=== PATIENT | male | born 1970 | race Two or more races ===

== ENCOUNTER 2022-01-12 08:45 | Emergency (ER) | payer MEDICAID ==
[~2022-01-12] VITALS: Ht 167.6 cm; Wt 100.0 kg
[~2022-01-12 08:45] MED LIST: AMOX500T86 PO; ASPI-543 PO; ATO40T PO; IBUP800T27 PO; INSU1INJ19 SC; LISI20TA28 PO; METF-370 PO
[2022-01-12 09:39] VITALS: BP 134/93
[2022-01-12] MEDS ORDERED: KETOROLAC TROMETH 60MG/2ML VIAL IM ONE (09:45)
[2022-01-12] MEDS ORDERED: IBUP800T27 PO ×2 (10:20→10:30)
[2022-01-12] MEDS ORDERED: BACL10TA PO ×2 (10:20→10:30)
== END 2022-01-12 10:37 | disposition home or self-care (01) ==
LOC: ER 08:45
DX: S16.1XXA Strain of muscle, fascia and tendon at neck level, initial encounter (principal); S29.012A Strain of muscle and tendon of back wall of thorax, initial encounter; I10 Essential (primary) hypertension; E78.5 Hyperlipidemia, unspecified; Z79.82 Long term (current) use of aspirin; Z79.1 Long term (current) use of non-steroidal anti-inflammatories (NSAID); Z79.4 Long term (current) use of insulin; Z79.899 Other long term (current) drug therapy; X50.1XXA Overexertion from prolonged static or awkward postures, initial encounter; Y93.89 Activity, other specified; Y92.89 Other specified places as the place of occurrence of the external cause; Y99.0 Civilian activity done for income or pay
CPT/HCPCS: 72040; 96372; 99283; J1885

== ENCOUNTER 2023-03-21 06:34 | Inpatient (IN) | payer MEDICAID ==
[~2023-03-21] VITALS: Ht 167.6 cm; Wt 97.6 kg
[~2023-03-21 06:34] MED LIST changes: +BACL10TA PO; +IBUP-1456 PO; -IBUP800T27 PO; -LISI20TA28 PO; +LISI20TA56 PO
[2023-03-21] MEDS: cefTRIAXone 1GM/50ML D5W 50 ML IV ONE (07:36)
[2023-03-21] MEDS: AZITHROMYCIN 500MG/ 250ML 250 ML IV ONE (07:36)
[2023-03-21] MEDS: methylPREDNISolone SOD SUCC 125 MG/2 ML VL IV ONE (07:36)
[2023-03-21 07:43] LABS: Basophils % (auto) 0.4 % (0.0-2.0); Eosinophils # (auto) 0 10 ^3/uL (0-0.8); Eosinophils % (auto) 0.3 % (0.0-7.0); Hemoglobin 13.5 g/dL (13.5-17.5); Monocytes # (auto) 1.1 10 ^3/uL (0-1.3); Nucleated Red Blood Cells % 0.1 %
[2023-03-21 07:46] LABS: Basophils # (auto) 0 10 ^3/uL (0-0.2); Hematocrit 41.7 % (41.0-53.0); Lymphocytes % (auto) 8.5 % (10.0-50.0); Mean Corpuscular Hemoglobin 26.8 pg (28.0-32.0); Mean Corpuscular Hgb Conc. 32.3 g/dL (32.0-36.0); Monocytes % (auto) 9.5 % (0.0-12.0); Neutrophils # (auto) 9.8 10 ^3/uL (1.6-8.6); Neutrophils % (auto) 81.3 % (37.0-80.0); Red Blood Cells 5.03 10^6/uL (4.5-5.90); Red Cell Distribution Width 13.3 % (11.8-14.3)
[2023-03-21 07:53] LABS: Alanine Aminotransferase 20 U/L (7-40); Alkaline Phosphatase 89 U/L (46-116); Anion Gap 6 (5-15); Aspartate Aminotransferase 13 U/L (13-40); BUN/Creatinine Ratio 13.9 (10.0-20.0); Blood Urea Nitrogen 11 mg/dL (9-23); Calcium 8.7 mg/dL (8.5-10.1); Carbon Dioxide 25 mmol/L (20-30); Chloride 106 mmol/L (98-107); Glucose 251 mg/dL (74-106); Potassium 3.6 mmol/L (3.5-5.1); Sodium 137 mmol/L (136-145)
[2023-03-21 07:54] LABS: Albumin 3.9 g/dL (3.2-4.8); Bilirubin, Total 0.4 mg/dL (0.2-1.0); Total Protein 6.5 g/dL (5.7-8.2)
[2023-03-21] MEDS: ACETAMINOPHEN 325 MG TAB PO PRN (08:16)
[2023-03-21] MEDS: HYDROcodone-ACET 5/325MG TAB PO ONE (08:16)
[2023-03-21 08:43] LABS: COVID19 ANTIGEN SOFIA FIA NEGATIVE (NEGATIVE)
[2023-03-21 08:48] LABS: Rapid Influenza A Positive (Negative)
[2023-03-21 08:49] LABS: Rapid Influenza B Negative (Negative)
[2023-03-21] MEDS ORDERED: PROMETHAZINE W/CODEINE 5 ML ORAL SYRUP PO PRN (09:45)
[2023-03-21] MEDS ORDERED: DOCUSATE SOD 100 MG CAP PO PRN (09:45)
[2023-03-21] MEDS ORDERED: NITROGLYCERIN 0.4 MG SL TAB SL PRN (09:45)
[2023-03-21] MEDS ORDERED: DEXTROSE (50%) 50ML SYRG IV PRN (09:45)
[2023-03-21] MEDS: SODIUM CHLORIDE 0.9% 1,000 ML IV SCH (09:45)
[2023-03-21] MEDS ORDERED: TEMAZEPAM 15 MG CAP PO PRN (09:45)
[2023-03-21] MEDS ORDERED: MORPHINE SULFATE INJ 2 MG/ml SYRG IV PRN ×2 (09:45)
[2023-03-21] MEDS ORDERED: ONDANSETRON HCL 4 MG/2 ML VIAL IV PRN (09:45)
[2023-03-21] MEDS ORDERED: ALBUTEROL SULF HFA 90MCG INH 200DOSE IN PRN (09:45)
[2023-03-21] MEDS: LISINOPRIL 20 MG TAB PO SCH (10:00)
[2023-03-21] MEDS: PANTOPRAZOLE 40 MG/10 ML VIAL INJ IV SCH (10:00)
[2023-03-21] MEDS: ASPirin-EC 81 mg tab PO SCH (10:00)
[2023-03-21 10:05] VITALS: BP 128/81; PULSE 90; RESP 18; TEMP 101.7; O2SAT 97
[2023-03-21 10:10] VITALS: O2SAT 97
[2023-03-21] MEDS ORDERED: ALBUTEROL SULF 2.5 MG/0.5ML(0.5%) NEB SOLN NEB PRN (10:15)
[2023-03-21] MEDS ORDERED: PROMETHAZINE HCL 25 MG/ML 1ML IV ONE (10:15)
[2023-03-21] MEDS: OSELTAMIVIR 75 MG CAP PO SCH (11:28)
[2023-03-21] MEDS: ENOXAPARIN SOD 40 MG/0.4 ML SYRINGE SC SCH (11:28)
[2023-03-21] MEDS: ACCU-CHEK COMFORT CURVE STRIP VI SCH (11:35)
[2023-03-21] MEDS: InsuLIN REG 1unit/0.01ml Soln (100units/ml) SC SCH ×2 (11:39→22:03)
[2023-03-21 12:45] VITALS: PULSE 83; RESP 18; O2SAT 96
[2023-03-21] MEDS: HYDROcodone-ACET 5/325MG TAB PO PRN (17:43)
[2023-03-21] MEDS: ATORVASTATIN 20 MG TAB PO SCH (18:13)
[2023-03-21 19:00] VITALS: O2SAT 95
[2023-03-21 19:30] VITALS: PULSE 91; RESP 13; O2SAT 96
[2023-03-21] MEDS: INSULIN LANTUS (GLARGINE) 1 /0.01ml (100units/ml) SC SCH (22:04)
[2023-03-21] MEDS: InsuLIN REG 1unit/0.01ml Soln (100units/ml) SC ONE (22:40)
[2023-03-22] VITALS (9 sets, daily range): BP systolic 104–126; BP diastolic 70–88; PULSE 70–88; RESP 16–22; TEMP 97.9–98.6; O2SAT 95–99
[2023-03-22] MEDS: InsuLIN REG 1unit/0.01ml Soln (100units/ml) SC SCH ×2 (06:04→21:27)
[2023-03-22] MEDS: ACETAMINOPHEN 325 MG TAB PO PRN (09:09)
[2023-03-22] MEDS: PROMETHAZINE W/CODEINE 5 ML ORAL SYRUP PO PRN (09:23)
[2023-03-22 09:43] LABS: Eosinophils # (auto) 0 10 ^3/uL (0-0.8); Hemoglobin 12.3 g/dL (13.5-17.5); Monocytes # (auto) 0.9 10 ^3/uL (0-1.3); Nucleated Red Blood Cells % 0.1 %
[2023-03-22 09:45] LABS: Basophils # (auto) 0 10 ^3/uL (0-0.2); Hematocrit 38.4 % (41.0-53.0); Lymphocytes # (auto) 1.5 10 ^3/uL (0.4-5.4); Lymphocytes % (auto) 10.4 % (10.0-50.0); Mean Corpuscular Hemoglobin 27.1 pg (28.0-32.0); Mean Corpuscular Hgb Conc. 31.9 g/dL (32.0-36.0); Mean Corpuscular Volume 84.7 fL (80.0-100.0); Monocytes % (auto) 6.6 % (0.0-12.0); Neutrophils # (auto) 11.6 10 ^3/uL (1.6-8.6); Red Blood Cells 4.53 10^6/uL (4.5-5.90); Red Cell Distribution Width 13.5 % (11.8-14.3)
[2023-03-22 10:02] LABS: Alanine Aminotransferase 15 U/L (7-40); Alkaline Phosphatase 76 U/L (46-116); Anion Gap 6 (5-15); BUN/Creatinine Ratio 16.3 (10.0-20.0); Blood Urea Nitrogen 13 mg/dL (9-23); Calcium 8.8 mg/dL (8.5-10.1); Carbon Dioxide 25 mmol/L (20-30); Chloride 106 mmol/L (98-107); Glucose 308 mg/dL (74-106); Potassium 4.4 mmol/L (3.5-5.1); Sodium 137 mmol/L (136-145)
[2023-03-22 10:03] LABS: Albumin 3.5 g/dL (3.2-4.8); Aspartate Aminotransferase 17 U/L (13-40)
[2023-03-22 10:04] LABS: Bilirubin, Total 0.3 mg/dL (0.2-1.0)
[2023-03-22] MEDS: INSULIN LANTUS (GLARGINE) 1 /0.01ml (100units/ml) SC SCH (21:26)
[2023-03-23] VITALS (7 sets, daily range): BP systolic 123–137; BP diastolic 76–90; PULSE 65–84; RESP 16–18; TEMP 97.6–98.1; O2SAT 97–98
[2023-03-23] MEDS ORDERED: TAMIFLU PO (09:19)
== END 2023-03-23 12:13 | disposition home or self-care (01) | DRG 113 ==
LOC: ER 06:34 → TELE 09:35 → TELE-CENTR 09:38
PROVIDERS: ADMIT Nurse Practitioner; ATTEND Nurse Practitioner
DX: J10.01 Influenza due to other identified influenza virus with the same other identified influenza virus pneumonia (principal); J96.01 Acute respiratory failure with hypoxia; R65.10 Systemic inflammatory response syndrome (SIRS) of non-infectious origin without acute organ dysfunction; E11.65 Type 2 diabetes mellitus with hyperglycemia; I10 Essential (primary) hypertension; E66.9 Obesity, unspecified; Z68.34 Body mass index [BMI] 34.0-34.9, adult; Z20.822 Contact with and (suspected) exposure to COVID-19; J10.1 Influenza due to other identified influenza virus with other respiratory manifestations; E78.00 Pure hypercholesterolemia, unspecified; J98.11 Atelectasis; Z79.84 Long term (current) use of oral hypoglycemic drugs; Z82.49 Family history of ischemic heart disease and other diseases of the circulatory system; Z83.3 Family history of diabetes mellitus
CPT/HCPCS: 36415; 71045; 80053; 82962; 83605; 85025; 87040; 87426; 87804; 93005; 96365; 96368; 96372; C9113; G0378; J1815

== ENCOUNTER 2024-02-25 17:08 | Emergency (ER) | payer MEDICAID ==
[~2024-02-25] VITALS: Ht 157.5 cm; Wt 97.0 kg
[~2024-02-25 17:08] MED LIST changes: -AMOX500T86 PO; -ATO40T PO; +ATOR-507 PO; +TAMIFLU PO
[2024-02-25 18:53] LABS: Alanine Aminotransferase 21 U/L (7-40); Albumin 4.4 g/dL (3.2-4.8); Anion Gap 7 (5-15); Aspartate Aminotransferase 14 U/L (13-40); BUN/Creatinine Ratio 11.8 (10.0-20.0); Bilirubin, Total 0.3 mg/dL (0.2-1.0); Blood Urea Nitrogen 13 mg/dL (9-23); Carbon Dioxide 28 mmol/L (20-31); Chloride 101 mmol/L (98-107); Lipase 48 U/L (12-53); Potassium 4.6 mmol/L (3.5-5.1); Sodium 136 mmol/L (136-145); Total Protein 7.6 g/dL (5.7-8.2)
--- NOTE | 2024-02-25 18:59 | ED.PDOC ---
GI ASSESSMENT HPI Comments 53y M who presents to the ED for chief complaint of abdominal pain. Pt states he has been having RUQ abdominal pain for the past 1 month getting progressively worse. Pt states the pain is constant, radiating to the back, describing the pain as sharp and achy, non-radiating, with noted exacerbation of pain after eating and no relieving factors. Pt otherwise denies nausea, vomiting, diarrhea, fever, cough, chills, or dysuria. Pt states he has no prior history of gallstones and denies any past surgeries. Pt otherwise has noted accu check of 442 with noted history of DM, HTN and HLD. Pt otherwise stable vitals with 98.9 F and BP of 116/83 with all other vitals in normal range. Pt otherwise denies any other symptoms at this time. Chief Complaint: Abdominal Pain Time Seen by MD: 18:53 Primary Care Provider: UNKNOWN Reviewed Notes: Medications Allergies: Coded Allergies: NO KNOWN ALLERGIES (Unverified , 11/21/21) Home Meds Active Scripts Pantoprazole Sodium Sesquihydr (Pantoprazole Sodium) 40 Mg Tab, 40 MG PO DAILY, #30 TAB Prov:PRINCESS LLAMAS MD 02/25/24 Ibuprofen Micronized (Ibuprofen) 800 Mg Tab, 800 MG PO Q8HP PRN, #30 TAB prn pain Prov:PRINCESS LLAMAS MD 02/25/24 Oseltamivir Phosphate (Tamiflu) 75 Mg Cap, 75 MG PO BID for 3 Days, #6 CAP Prov:ERICKYOUNG GLASS Kevin BEAUTY ARTIST 03/23/23 Baclofen (Baclofen) 10 Mg Tab, 10 MG PO BID, #20 TAB Prov:LILA SANTOS 01/12/22 Ibuprofen (Ibuprofen) 800 Mg Tab, 800 MG PO TID for RIGHT GROIN MASS, #30 MG Prov:LILA SANTOS 01/12/22 Reported Medications Insulin Glargine (Basaglar Kwikpen) 100 Unit/Ml Inj, 50 UNIT SC DAILY for DIABETES, INJ 11/21/21 Atorvastatin Calcium (Lipitor) 40 Mg Tab, 1 TAB PO QPM for HIGH CHOLESTEROL, #90 TAB 3 Refills 11/21/21 Lisinopril (Lisinopril) 20 Mg Tab, 20 MG PO DAILY for 30 Days, MG 11/21/21 Aspirin (Aspir-Low) 81 Mg Tab, 81 MG PO DAILY for 30 Days, MG 11/21/21 Metformin Hydrochloride (Metformin Hcl) 500 Mg Tab, 1000 MG PO IBID for 30 Days, MG 11/21/21 Information Source: Patient Mode of Arrival: Ambulatory Brought in by: spouse Past Medical History PAST MEDICAL HISTORY: DM, High Lipids, HTN Surgical History: Denies all surgeries Family History Family History: Reviewed,noncontributory to illness Social History Smoker: Non-Smoker Alcohol: Occasionally Drugs: Denies Drug Use Lives In: Home Constitutional: denies: chills, diaphoresis, fatigue, fever, malaise, sweats, weakness, others EENTM: denies: blurred vision, double vision, ear bleeding, ear discharge, ear drainage, ear pain, ear ringing, eye pain, eye redness, hearing loss, mouth pain, mouth swelling, nasal discharge, nose bleeding, nose congestion, nose pain, photophobia, tearing, throat pain, throat swelling, voice changes, others Respiratory: denies: cough, hemoptysis, orthopnea, SOB at rest, shortness of breath, SOB with excertion, stridor, wheezing, others Cardiovascular: denies: chest pain, dizzy spells, diaphoresis, Dyspnea on exertion, edema, irregular heart beat, left arm pain, lightheadedness, palpitations, PND, syncope, others Gastrointestinal: reports: abdominal pain; denies: abdomen distended, blood streaked bowels, constipated, diarrhea, dysphagia, difficulty swallowing, hematemesis, melena, nausea, poor appetite, poor fluid intake, rectal bleeding, rectal pain, vomiting, others Genitourinary: denies: burning, dysuria, flank pain, frequency, hematuria, incontinence, penile discharge, penile sore, pain, testicle pain, testicle swelling, urgency, others Neurological: denies: dizziness, fainting, headache, left sided numbness, left sided weakness, numbness, paresthesia, pre-existing deficit, right sided numbness, right sided weakness, seizure, speech problems, tingling, tremors, weakness, others Musculoskeletal: denies: back pain, gout, joint pain, joint swelling, muscle pain, muscle stiffness, neck pain, others Integumetry: denies: bruises, change in color, change in hair/nails, dryness, laceration, lesions, lumps, rash, wounds, others Allergic/Immunocompromised: denies: Difficulty Healing, Frequent Infections, Hives, Itching, others Hematologic/Lymphatic: denies: anemia, blood clots, easy bleeding, easy bruising, swollen glands, others Endocrine: denies: excessive hunger, excessive sweating, excessive thirst, excessive urination, flushing, intolerance to cold, intolerance to heat, un explained weight gain, unexplained weight loss, others Psychiatric: denies: anxiety, bipolar disorder, depression, hopeless, panic disorder, schizophrenia, sleepless, suicidal, others All Other Systems: Reviewed and Negative Physical Exam General Appearance: No Apparent Distress HEENT: Other (Unremarkable) Neck: Full Range of Motion, Normal Inspection Respiratory: Lungs Clear, No Accessory Muscle Use, No Respiratory Distress, Normal Breath Sounds Cardiovascular: No Edema, No JVD, Regular Rate/Rhythm Breast Exam: Deferred Gastrointestinal: RUQ, Soft, Tenderness Genitalia: Deferred Pelvic: Deferred Rectal: Deferred Extremities: Normal inspection, Normal range of motion, Non-tender, No pedal edema Neurologic: Alert (Oriented x4), Normal Affect, Normal Mood, Other (Ambulatory without difficulty. No gross focal deficit.) Cerebellar Function: NOT DONE Reflexes: NOT DONE Skin: Dry, Normal Color, Warm Lymphatic: NOT DONE Was a procedure done? Was a procedure done?: No GI differential Dx Differential Diagnosis: Cholangitis, Cholecystitis, Constipation, Gastritis/PUD, Gastroenteritis, Pancreatitis, Dehydration, Food Poisoning, Bacterial, Viral, Kidney Stone Other Differential Diagnosis gallstones, biliary colic, cholangitis X-Ray, Labs, Meds, VS Vital Signs Date Time Temp Pulse Resp B/P (MAP) Pulse Ox O2 Delivery O2 Flow Rate FiO2 02/25/24 22:39 98.0 88 19 116/74 (88) 95 98.0 02/25/24 21:12 87 19 95 Room Air* 0 21 02/25/24 18:11 98.0 97 18 123/77 (92) 97 98.0 02/25/24 17:30 98.9 95 17 116/83 (94) 95 Lab Test 02/25/24 22:19 02/25/24 18:08 02/25/24 17:40 Range/Units POC Glucose 276 H 70-106 mg/dl White Blood Count 6.1 4.4-10.8 10^3/uL Red Blood Count 5.89 4.5-5.90 10^6/uL Hemoglobin 15.9 13.5-17.5 g/dL Hematocrit 48.8 41.0-53.0 % Mean Corpuscular Volume 82.9 80.0-100.0 fL Mean Corpuscular Hemoglobin 27.0 L 28.0-32.0 pg Mean Corpuscular Hemoglobin Concent 32.6 32.0-36.0 g/dL Red Cell Distribution Width 13.6 11.8-14.3 % Platelet Count 177 140-450 10^3/uL Mean Platelet Volume 9.6 6.9-10.8 fL Neutrophils (%) (Auto) 52.6 37.0-80.0 % Lymphocytes (%) (Auto) 34.8 10.0-50.0 % Monocytes (%) (Auto) 9.6 0.0-12.0 % Eosinophils (%) (Auto) 2.4 0.0-7.0 % Basophils (%) (Auto) 0.6 0.0-2.0 % Neutrophils # (Auto) 3.2 1.6-8.6 10 ^3/uL Lymphocytes # (Auto) 2.1 0.4-5.4 10 ^3/uL Monocytes # (Auto) 0.6 0-1.3 10 ^3/uL Eosinophils # (Auto) 0.1 0-0.8 10 ^3/uL Basophils # (Auto) 0 0-0.2 10 ^3/uL Nucleated Red Blood Cells 0.3 % Sodium Level 136 136-145 mmol/L Potassium Level 4.6 3.5-5.1 mmol/L Chloride Level 101 98-107 mmol/L Carbon Dioxide Level 28 20-31 mmol/L Anion Gap 7 5-15 Blood Urea Nitrogen 13 9-23 mg/dL Creatinine 1.10 0.700-1.30 mg/dL Glomerular Filtration Rate Calc 80 >90 mL/min BUN/Creatinine Ratio 11.8 10.0-20.0 Serum Glucose 409 *H 74-106 mg/dL Calcium Level 10.0 8.7-10.4 mg/dL Total Bilirubin 0.3 0.2-1.0 mg/dL Aspartate Amino Transferase (AST) 14 13-40 U/L Alanine Aminotransferase (ALT) 21 7-40 U/L Alkaline Phosphatase 120 H 46-116 U/L Total Protein 7.6 5.7-8.2 g/dL Albumin 4.4 3.2-4.8 g/dL Lipase 48 12-53 U/L Urine Color Colorless Yellow Urine Clarity Clear Clear Urine pH 6.5 5.0-9.0 Urine Specific [place] 1.032 1.001-1.035 Urine Protein Negative Negative Urine Ketones Negative Negative Urine Blood Negative Negative /uL Urine Nitrite Negative Negative Urine Bilirubin Negative Negative Urine Urobilinogen Normal Negative mg/dL Urine Leukocyte Esterase Negative Negative /uL Urine RBC 1 0 - 3 /hpf Urine WBC 1 0 - 3 /hpf Urine Squamous Epithelial Cells None seen <5 /hpf Urine Bacteria None seen None Seen /hpf Urine Glucose 4+ H Normal mg/dL Current Medications Medications (Trade) Dose Ordered Sig/Jose De Jesus Route Start Time Stop Time Status Last Admin Diagnostic Test (Pha) (Accu-Chek Comfort Curve T) 1 strip ACHS 02/25/24 22:00 02/25/24 22:40 DC 02/25/24 22:00 Pantoprazole Sodium (Protonix Tablet) 40 mg ONCE ONCE PO 02/25/24 21:15 02/25/24 21:25 DC 02/25/24 21:33 Ibuprofen (Motrin Tablet) 600 mg ONCE ONCE PO 02/25/24 21:15 02/25/24 21:25 DC 02/25/24 21:34 PROCEDURE(s): CXR1 - CHEST XRAY 1 VIEW REASON: RUQ pain ORDER NUMBER(s): [id number], ACCESSION NUMBER(s): [id number] CHEST RADIOGRAPH Indication: RUQ pain Technique: Single frontal view of the chest was obtained COMPARISON: XY CHEST PORTABLE on DOS: 03/21/23 FINDINGS: Lines and Tubes: None Lungs: Clear Pleura: No effusion. No pneumothorax. Cardiomediastinal contours: Unremarkable Bones: Unremarkable IMPRESSION: 1. No acute disease. EDURE(s): ABPL - CT AB PEL WO CON-NO ORAL OR IV REASON: RUQ pain, rule out cholecistits / nephrolithiasis ORDER NUMBER(s): [id number], ACCESSION NUMBER(s): [id number] Exam: CT CT AB PEL WO CON-NO ORAL OR IV History: RUQ pain, rule out cholecistits / nephrolithiasis Comparison Study: None Technique: Multidetector spiral CT of the abdomen was performed from lung bases to pubic symphysis. Imaging was performed without IV contrast. Axial, coronal and sagittal multiplanar reformats were obtained from the axial data set by the technologist. Radiation Dose : 1. Abdomen/Pelvis: CTDIvol 17.4 mGy, DLP 986.18 mGy*cm. Findings: Evaluation of solid organs is limited due to lack of intravenous contrast use. Lung Bases: No acute or significant lung base finding. Normal heart size. No pleural or pericardial effusion. Liver: The liver is normal in size. No focal lesions. Gallbladder and Biliary Tree: Unremarkable Spleen: Unremarkable Pancreas: The pancreas is grossly normal in appearance. Adrenal Glands: Unremarkable Kidneys: Kidneys are grossly normal without calculi or hydronephrosis. Bladder: Grossly unremarkable for degree of distention. Bowel: The stomach is grossly normal in appearance. Small bowel and colon are normal in caliber and distribution. Normal appendix is visualized in the right lower quadrant without findings of appendicitis. Ascites: Absent Lymphadenopathy: No mesenteric, retroperitoneal or periportal lymphadenopathy. Abdominal Wall and Mesentery: Unremarkable. Vasculature: The visualized abdominal aorta is normal in size and caliber. Evaluation of abdominal and pelvic vessels is limited due to lack of intravenous contrast. Pelvic Organs: Unremarkable Musculoskeletal: No aggressive focal bony lesions, acute fractures or dislocation. IMPRESSION: 1. No acute abdominal or pelvic findings. Radiation optimization: All CT scans at this facility use at least one of these dose optimization techniques: automated exposure control mA and/or kV adjustment per patient size (includes targeted exams where dose is matched to c linical indication) or iterative reconstruction. X-Ray, Labs, Meds, VS Comment Patient seen in conjunction with resident physician Dr. Molly Abebe. Agree with assessment, treatment and plan. 53-year-old male with a history of hypertension, diabetes and dyslipidemia complaining of right upper quadrant pain Vitals unremarkable Exam remarkable for right upper quadrant tenderness to palpation. No Ponce's sign. Chest x-ray unremarkable CT abdomen and pelvis unremarkable CBC unremarkable, metabolic panel remarkable for glucose 409, lipase normal, UA remarkable for 4+ glucose Patient treated with the following in the ED: Ibuprofen 600 mg p.o., insulin per sliding scale subQ, Toradol 15 mg IM and Protonix 40 mg p.o. On re-evaluation, patient states pain has improved, vitals were stable, repeat abdominal exam was benign, and patient tolerated p.o. fluids. Accu-Chek was in the 200s. Hospitalization was considered, however patient had rapid improvement of symptoms with treatment in the ED, and stated he did not want to be hospitalized. Patient appears stable for outpatient treatment with close follow-up with his primary physician Rx Protonix, ibuprofen Time of 1ST Reevaluation: 19:30 Reevaluation 1ST: Unchanged Patient Education/Counseling: Diagnosis, Treatment Family Education/Counseling: Diagnosis, Treatment Departure 1 Departure Time of Disposition: 22:00 Impression: Primary Impression: Abdominal pain Qualified Codes: R10.11 - Right upper quadrant pain Additional Impression: Hyperglycemia due to diabetes mellitus Disposition: HOME / SELF CARE / HOMELESS Condition: Stable Additional Instructions: Your blood and urine tests were unremarkable except for a high blood glucose. We have treated that in the ER. Your CT scan was unremarkable. I have prescribed pain medication. Follow-up with your primary doctor in 1-2 days e-Prescriptions Pantoprazole Sodium Sesquihydr (Pantoprazole Sodium) 40 Mg Tab 40 MG PO DAILY, #30 TAB Prov: PRINCESS LLAMAS MD 02/25/24 Ibuprofen Micronized (Ibuprofen) 800 Mg Tab 800 MG PO Q8HP PRN, #30 TAB prn pain Prov: PRINCESS LLAMAS MD 02/25/24 Discharged With: Self Critical Care Note Critical Care Time?: No Stability Stability form required: No Heart Score Heart Score: Heart Score Response (Comments) Value History N/A 0 EKG N/A 0 Age N/A 0 Risk Factors N/A 0 Troponin N/A 0 Total 0 I personally scribed for PRINCESS LLAMAS MD ([email or web address]) on 02/25/24 at 18:59. Electronically submitted by Marleny Arellano ([email or web address]). PRINCESS LLAMAS MD Feb 25, 2024 18:59
[2024-02-25 19:07] LABS: Alkaline Phosphatase 120 U/L (46-116)
[2024-02-25 19:08] LABS: Glucose 409 mg/dL (74-106)
[2024-02-25 19:30] LABS: Urine Bacteria None Seen /hpf (None Seen)
[2024-02-25] MEDS ORDERED: DEXTROSE (50%) 50ML SYRG IV PRN (19:45)
[2024-02-25 19:47] LABS: Basophils # (auto) 0 10 ^3/uL (0-0.2); Basophils % (auto) 0.6 % (0.0-2.0); Eosinophils # (auto) 0.1 10 ^3/uL (0-0.8); Eosinophils % (auto) 2.4 % (0.0-7.0); Hematocrit 48.8 % (41.0-53.0); Hemoglobin 15.9 g/dL (13.5-17.5); Lymphocytes # (auto) 2.1 10 ^3/uL (0.4-5.4); Lymphocytes % (auto) 34.8 % (10.0-50.0); Mean Corpuscular Hgb Conc. 32.6 g/dL (32.0-36.0); Mean Corpuscular Volume 82.9 fL (80.0-100.0); Monocytes # (auto) 0.6 10 ^3/uL (0-1.3); Monocytes % (auto) 9.6 % (0.0-12.0); Neutrophils # (auto) 3.2 10 ^3/uL (1.6-8.6); Neutrophils % (auto) 52.6 % (37.0-80.0); Nucleated Red Blood Cells % 0.3 %; Platelet Count (auto) 177 10^3/uL (140-450); Red Blood Cells 5.89 10^6/uL (4.5-5.90); Red Cell Distribution Width 13.6 % (11.8-14.3); White Blood Cell 6.1 10^3/uL (4.4-10.8)
--- NOTE | 2024-02-25 19:52 | DVH ---
CHEST RADIOGRAPH Indication: RUQ pain Technique: Single frontal view of the chest was obtained COMPARISON: XY CHEST PORTABLE on DOS: 03/21/23 FINDINGS: Lines and Tubes: None Lungs: Clear Pleura: No effusion. No pneumothorax. Cardiomediastinal contours: Unremarkable Bones: Unremarkable IMPRESSION: 1. No acute disease.
--- NOTE | 2024-02-25 19:57 | DVH ---
Exam: CT CT AB PEL WO CON-NO ORAL OR IV History: RUQ pain, rule out cholecistits / nephrolithiasis Comparison Study: None Technique: Multidetector spiral CT of the abdomen was performed from lung bases to pubic symphysis. Imaging was performed without IV contrast. Axial, coronal and sagittal multiplanar reformats were ob tained from the axial data set by the technologist. Radiation Dose : 1. Abdomen/Pelvis: CTDIvol 17.4 mGy, DLP 986.18 mGy*cm. Findings: Evaluation of solid organs is limited due to lack of intravenous contrast use. Lung Bases: No acute or significant lung base finding. Normal heart size. No pleural or pericardial effusion. Liver: The liver is normal in size. No focal lesions. Gallbladder and Biliary Tree: Unremarkable Spleen: Unremarkable Pancreas: The pancreas is grossly normal in appearance. Adrenal Glands: Unremarkable Kidneys: Kidneys are grossly normal without calculi or hydronephrosis. Bladder: Grossly unremarkable for degree of distention. Bowel: The stomach is grossly normal in appearance. Small bowel and colon are normal in caliber and d istribution. Normal appendix is visualized in the right lower quadrant without findings of appendici tis. Ascites: Absent Lymphadenopathy: No mesenteric, retroperitoneal or periportal lymphadenopathy. Abdominal Wall and Mesentery: Unremarkable. Vasculature: The visualized abdominal aorta is normal in size and caliber. Evaluation of abdominal a nd pelvic vessels is limited due to lack of intravenous contrast. Pelvic Organs: Unremarkable Musculoskeletal: No aggressive focal bony lesions, acute fractures or dislocation. IMPRESSION: 1. No acute abdominal or pelvic findings. Radiation optimization: All CT scans at this facility use at least one of these dose optimization annalise hniques: automated exposure control mA and/or kV adjustment per patient size (includes targeted exam s where dose is matched to clinical indication) or iterative reconstruction.
[2024-02-25 20:17] LABS: Urine Blood Negative /uL (Negative); Urine Clarity Clear (Clear); Urine Color Colorless (Yellow); Urine Protein, UAD Negative (Negative); Urine Specific Gravity 1.032 (1.001-1.035); Urine Squamous Epithelial Cell None Seen /hpf (<5); Urine Urobilinogen Normal (Negative); Urine WBC 1 /hpf (0 - 3); Urine pH 6.5 (5.0-9.0)
[2024-02-25 21:12] VITALS: PULSE 87; RESP 19; O2SAT 95
[2024-02-25] MEDS: KETOROLAC TROMETH 30 MG/ML 1ML VIAL IV ONE (21:22)
[2024-02-25] MEDS ORDERED: IBUP-1455 PO (21:24)
[2024-02-25] MEDS ORDERED: PANT40T PO (21:24)
[2024-02-25] MEDS: PANTOPRAZOLE 40 MG/10 ML VIAL INJ IV ONE (21:26)
[2024-02-25] MEDS: SODIUM CHLORIDE 0.9% 1,000 ML IV ONE (21:26)
[2024-02-25] MEDS: PANTOPRAZOLE 40 MG TAB PO ONE (21:33)
[2024-02-25] MEDS: IBUPROFEN 600 MG TAB PO ONE (21:34)
[2024-02-25] MEDS: ACCU-CHEK COMFORT CURVE STRIP VI SCH (22:00)
[2024-02-25] MEDS: InsuLIN REG 1unit/0.01ml Soln (100units/ml) SC SCH (22:19)
[2024-02-25 22:39] VITALS: BP 116/74; PULSE 88; RESP 19; TEMP 98; O2SAT 95
[2024-02-26] MEDS ORDERED: InsuLIN REG 1unit/0.01ml Soln (100units/ml) SC SCH (07:00)
== END 2024-02-25 22:40 | disposition home or self-care (01) ==
LOC: ER 17:11
DX: R10.11 Right upper quadrant pain (principal); E11.65 Type 2 diabetes mellitus with hyperglycemia; I10 Essential (primary) hypertension; Z79.1 Long term (current) use of non-steroidal anti-inflammatories (NSAID); Z79.4 Long term (current) use of insulin; Z79.82 Long term (current) use of aspirin; Z79.899 Other long term (current) drug therapy
CPT/HCPCS: 36415; 71045; 74176; 80053; 81001; 82947; 82962; 83690; 85025